=== PATIENT | male | born 1985 | race Caucasian/White ===

== ENCOUNTER 2016-12-19 11:41 | Emergency (ER) | payer MEDICAID ==
[~2016-12-19] VITALS: Ht 175.3 cm; Wt 77.1 kg
[2016-12-19 11:45] VITALS: BP_SYST 114
[2016-12-19] MEDS ORDERED: IBUPROFEN 800 MG TABLET PO ONE (14:00)
[2016-12-19 14:15] VITALS: BP_SYST 119
== END 2016-12-19 14:15 | disposition home or self-care (01) ==
LOC: SED 11:41
DX: S93.602A Unspecified sprain of left foot, initial encounter (principal); F12.90 Cannabis use, unspecified, uncomplicated; X58.XXXA Exposure to other specified factors, initial encounter; Y93.89 Activity, other specified; Y92.89 Other specified places as the place of occurrence of the external cause; Y99.8 Other external cause status
CPT/HCPCS: 99284

== ENCOUNTER 2021-01-18 23:28 | Emergency (ER) | payer MEDICAID ==
[~2021-01-18] VITALS: Ht 175.3 cm; Wt 77.1 kg
[2021-01-18 23:35] VITALS: BP_SYST 115
--- NOTE | 2021-01-18 23:48 | NUR ---
Patient to ER bed H1 to gown for evaluation. Side rails up. Report given to INOCENTE PELLETIER.
--- NOTE | 2021-01-18 23:49 | NUR ---
Came in ER ambulatory from home this 35 year old male, AAOX4, breathing spontaneously at room air, not in distress noted. With chief complaints of right shoulder pain radiating to the neck and rt arm for 5days, denies trauma, no known medical, s/p foot surgery. no known allergy, vital signs stable
--- NOTE | 2021-01-18 23:51 | NUR ---
ER at bedside examining patient.
--- NOTE | 2021-01-19 00:09 | NUR ---
Medication given as ordered, health teaching provided and verbalized understanding
[2021-01-19] MEDS ORDERED: KETOROLAC TROMETHAMINE 60 MG/2 ML VIAL IM ONE (00:15)
[2021-01-19] MEDS ORDERED: HYDR-3917 PO (01:43)
[2021-01-19] MEDS ORDERED: MELO10CA2 PO (01:59)
[2021-01-19] MEDS ORDERED: MELO15TA13 PO (02:00)
[2021-01-19] MEDS ORDERED: HYDROcodone/ACETAMIN 5-325 MG TAB (NORCO/ VICODIN) PO ONE (02:00)
--- NOTE | 2021-01-19 02:07 | NUR ---
Medication given as ordered prior discharge, health teaching provided and verbalized understanding
[2021-01-19 02:09] VITALS: BP_SYST 112
--- NOTE | 2021-01-19 02:09 | NUR ---
Patient given written and verbal discharge instructions and verbalizes understanding. ER MD discussed with patient the results and treatment provided. Patient in stable condition. ID arm band removed. Rx of meloxicam given. Patient educated on pain management and to follow up with PMD. Pain Scale 3/10. Opportunity for questions provided and answered. Medication side effect fact sheet provided.
== END 2021-01-19 02:09 | disposition home or self-care (01) ==
LOC: SED 23:28
DX: M54.2 Cervicalgia (principal); M79.601 Pain in right arm; Z79.899 Other long term (current) drug therapy
CPT/HCPCS: 72040; 73030; 96372; 99284; J1885

== ENCOUNTER 2021-03-12 09:51 | Emergency (ER) | payer MEDICAID ==
[~2021-03-12] VITALS: Ht 205.7 cm; Wt 74.8 kg
[~2021-03-12 09:51] MED LIST: MELO15TA13 PO
[2021-03-12] MEDS ORDERED: MORPHINE 4 MG INJ. 4 MG/ML VIAL IM ONE (11:00)
[2021-03-12 11:18] VITALS: BP_SYST 113
[2021-03-12] MEDS ORDERED: HYDR-3917 PO (13:00)
[2021-03-12] MEDS ORDERED: IBUP-1971 PO (13:00)
[2021-03-12 13:43] VITALS: BP_SYST 113
== END 2021-03-12 13:43 | disposition home or self-care (01) ==
LOC: SED 09:51
DX: M54.12 Radiculopathy, cervical region (principal); Z79.899 Other long term (current) drug therapy
CPT/HCPCS: 72040; 73030; 96372; 99284; J2270

== ENCOUNTER 2021-04-15 19:33 | Emergency (ER) | payer MEDICAID ==
[~2021-04-15] VITALS: Ht 170.2 cm; Wt 72.6 kg
[~2021-04-15 19:33] MED LIST changes: +HYDR-3917 PO; +IBUP-1971 PO
[2021-04-15 19:43] VITALS: BP_SYST 127
--- NOTE | 2021-04-15 19:43 | NUR ---
Patient triaged and placed in waiting room. VSS and patient appears in no acute distress at this time., awaiting available bed, and MD notified of need for MSE.
[2021-04-15] MEDS ORDERED: KETOROLAC TROMETHAMINE 60 MG/2 ML VIAL IM ONE (20:15)
[2021-04-15] MEDS ORDERED: MECLIZINE HCL 25 MG TABLET (ANITVERT) PO ONE (20:15)
--- NOTE | 2021-04-15 20:15 | NUR ---
Patient to [facility] to [facility] for evaluation. Side rails up. Report given to Chikis PELLETIER.
[2021-04-15] MEDS ORDERED: ONDANSETRON 4 MG ODT TAB PO ONE (20:30)
--- NOTE | 2021-04-15 20:39 | NUR ---
pt moved to ER bed 6.Report given to Indra.
--- NOTE | 2021-04-15 20:48 | NUR ---
Pt BIB family to ED seeking evaluation of acute onset, constant dizziness since 11AM today. He admits to having smoked marijuana today. No chest pain, shortness of breath, abdominal pain, nausea, vomiting, diarrhea, head trauma, LOC, vision changes, or other medical complaints at this time. No alleviating or exacerbating factors. Discomfort rated 7/10 in severity
[2021-04-15] MEDS ORDERED: ONDA4TAB5 PO (21:55)
[2021-04-15] MEDS ORDERED: MECL-108 PO (21:55)
[2021-04-15 22:00] VITALS: BP_SYST 127
--- NOTE | 2021-04-15 22:03 | NUR ---
Patient given written and verbal discharge instructions and verbalizes understanding. DR. MAMADOU LUI MD discussed with patient the results and treatment provided. Patient in stable condition. ID arm band removed. Rx of MECLIZINE, ZOFRAN given. Patient educated on pain management and to follow up with PMD. Pain Scale 0/10. Opportunity for questions provided and answered. Medication side effect fact sheet provided.
== END 2021-04-15 22:00 | disposition home or self-care (01) ==
LOC: SED 19:33
DX: H81.10 Benign paroxysmal vertigo, unspecified ear (principal); Z79.899 Other long term (current) drug therapy
CPT/HCPCS: 96372; 99283; J1885; J8597; Q0162

== ENCOUNTER 2022-12-27 11:47 | Emergency (ER) | payer MEDICAID ==
[~2022-12-27] VITALS: Ht 170.2 cm; Wt 81.6 kg
[~2022-12-27 11:47] MED LIST changes: +MECL-108 PO; +ONDA4TAB5 PO
[2022-12-27 12:15] VITALS: BP_SYST 115; PULSE 86; RESP 18; TEMP 97.4; O2SAT 99
[2022-12-27] MEDS ORDERED: NAPR-690 PO (13:45)
== END 2022-12-27 13:50 | disposition home or self-care (01) ==
LOC: SED 11:47
DX: S92.332A Displaced fracture of third metatarsal bone, left foot, initial encounter for closed fracture (principal); Z79.899 Other long term (current) drug therapy; W22.8XXA Striking against or struck by other objects, initial encounter; Y93.89 Activity, other specified; Y92.89 Other specified places as the place of occurrence of the external cause; Y99.8 Other external cause status
CPT/HCPCS: 99283